=== PATIENT | female | born 2000 | race Caucasian/White ===

== ENCOUNTER 2020-12-31 10:50 | Emergency (ER) | payer OTHER ==
[~2020-12-31] VITALS: Ht 165.1 cm; Wt 59.0 kg
[2020-12-31 11:05] VITALS: BP 118/68
[2020-12-31] MEDS ORDERED: KETOROLAC TROMETHAMINE INJ 30 MG/ML VIAL ONE (11:28)
[2020-12-31] MEDS ORDERED: DEXAMETHASONE 4 MG TABLET ONE (11:28)
[2020-12-31] MEDS ORDERED: KETOROLAC TROMETHAMINE INJ 60 MG/2 ML VIAL IM ONE (11:30)
[2020-12-31] MEDS ORDERED: DEXAMETHASONE SOLN 5 MG/5 ML UDC PO ONE (11:30)
--- NOTE | 2020-12-31 11:39 | NUR ---
Patient discharged to home in stable condition. Written and verbal after care instructions given. Patient verbalizes understanding of instruction.
== END 2020-12-31 11:40 | disposition home or self-care (01) ==
LOC: ER 10:55
DX: J02.9 Acute pharyngitis, unspecified (principal)
CPT/HCPCS: 96372; 99283; J1885; J8540